=== PATIENT | female | born 1960 | race Caucasian/White ===

== ENCOUNTER 2016-05-07 08:04 | Day surgery (SDC) | payer BC ==
[~2016-05-07 08:04] MED LIST: Lactated Ringers 1,000 ML IV SCH; Midazolam 1 MG/ML 2 ML SDV ONE; Propofol 200 MG/20 ML SDV ONE; fentaNYL 100 MCG/2 ML SDV ONE
--- NOTE | 2016-05-07 08:51 | PCM.PREANE ---
Preanesthetic Assessment - Anesthesia/Transfusion/Family Hx Anesthesia History: Prior Anesthesia Without Reaction Family History of Anesthesia Reaction: No Transfusion History: No Prior Transfusion(s) - Review of Systems General: No Symptoms Pulmonary: No Symptoms Cardiovascular: No Symptoms Gastrointestinal: No symptoms Neurological: No Symptoms Other: Reports: None - Physical Assessment NPO Status Date: 05/06/16 O2 Sat by Pulse Oximetry: 96 Respiratory Rate: 16 Vital Signs: Last Vital Signs Temp 36.8 C 05/07/16 08:15 Pulse 72 05/07/16 08:15 Resp 16 05/07/16 08:15 BP 139/80 05/07/16 08:15 Pulse Ox 96 05/07/16 08:15 Height: 1.7 m Weight: 97.069 kg ASA Class: 2 Mental Status: Alert & Oriented x3 Dentition: Reports: Normal Dentition ROM/Head Extension: Full Lungs: Clear to auscultation, Normal respiratory effort Cardiovascular: Regular Rate, Regular Rhythm - Allergies Allergies/Adverse Reactions: Allergies Allergy/AdvReac Type Severity Reaction Status Date / Time No Known Allergies Allergy Verified 12/10/13 14:17 MST - Blood Product(s) Available: None - Anesthesia Plan Pre-Op Medication Ordered: None - Acknowledgements Anesthesia Type Planned: MAC Pt an Appropriate Candidate for the Planned Anesthesia: Yes Alternatives and Risks of Anesthesia Discussed w Pt/Guardian: Yes Pt/Guardian Understands and Agrees with Anesthesia Plan: Yes PreAnesthesia Questionnaire Gastrointestinal History: Reports: Colon polyp, GERD Neurological History: Reports: Migraines Psychiatric History: Reports: Anxiety Endocrine/Metabolic History: Reports: Obesity/BMI 30+ - Past Surgical History Head Surgeries/Procedures: Reports: None GI Surgical History: Reports: Colonoscopy Female Surgical History: Reports: Tubal ligation, Other (see below) Other Female Surgeries/Procedures: "kidney surgery as a child" Musculoskeletal Surgical History: Reports: Other (see below) Other Musculoskeletal Surgeries/Procedures:: hx achilles tendon repair - SUBSTANCE USE Smoking Status *Q: Current Every Day Smoker Second Hand Smoke Exposure: Yes Days Per Week of Alcohol Use: 1 Number of Drinks Per Day: 4 Total Drinks Per Week: 4 Recreational Drug Use History: No - HOME MEDS Home Medications: Home Meds Ibuprofen [Motrin] 800 mg PO TID PRN 12/10/13 [History] Multivits,Ca,Minerals/Iron/FA [One-A-Day Women's] 1 tab PO DAILY 05/04/16 [ History] - CURRENT (IN HOUSE) MEDS Current Meds: Current Medications Lactated Ringer's (Ringers, Lactated) 1,000 mls @ 125 mls/hr IV ASDIRECTED [facility] Last Admin: 05/07/16 08:16 Dose: 125 mls/hr Discontinued Medications Fentanyl (Sublimaze) Confirm Administered Dose 100 mcg .ROUTE .STK-MED ONE Stop: 05/07/16 07:26 Midazolam HCl (Versed 1 Mg/Ml) Confirm Administered Dose 2 mg .ROUTE .STK-MED ONE Stop: 05/07/16 07:26 Propofol (Diprivan 20 Ml) Confirm Administered Dose 200 mg .ROUTE .STK-MED ONE Stop: 05/07/16 07:26 Preanesthetic Assessment - ANESTHESIA/TRANSFUSION/FAMILY HX Anesthesia/Transfusion History: No Prior Transfusion(s), Prior Anesthesia Family History of Anesthesia Reaction: No - PHYSICAL ASSESSMENT O2 Sat by Pulse Oximetry: 96 RR: 16 Vital Signs: Last Vital Signs Temp 36.8 C 05/07/16 08:15 Pulse 72 05/07/16 08:15 Resp 16 05/07/16 08:15 BP 139/80 05/07/16 08:15 Pulse Ox 96 05/07/16 08:15 Height: 1.7 m Weight: 97.069 kg - ALLERGIES Allergies/Adverse Reactions: Allergies Allergy/AdvReac Type Severity Reaction Status Date / Time No Known Allergies Allergy Verified 12/10/13 14:17 MST
[2016-05-07] MEDS ORDERED: Propofol 200 MG/20 ML SDV ONE (10:03)
--- NOTE | 2016-05-07 10:34 | PCM.OPNOTE ---
- General Post-Op/Procedure Note Date of Surgery/Procedure: 05/07/16 Operative Procedure(s): Colonoscopy with biopsy distal ascending colon/proximal transverse colon mass Pre Op Diagnosis: Personal history of colon polyps Post-Op Diagnosis: Distal ascending colon/proximal transverse colon mass. Sigmoid diverticulosis. Anesthesia Technique: MAC (ASA II) Primary Surgeon: Khalif Veloz Condition: Good Free Text/Narrative:: Dictation [id number]
[2016-05-07] MEDS ORDERED: Lactated Ringers 1,000 ML IV SCH (10:45)
[2016-05-07 11:05] VITALS: BP 139/89
--- NOTE | 2016-05-07 12:14 | PCM.POSTAN ---
POST ANESTHESIA ASSESSMENT - MENTAL STATUS Mental Status: alert, oriented - RESPIRATORY Respiratory Status: respiratory rate WNL, airway patent - CARDIOVASCULAR CV Status: pulse rate WNL, blood pressure stable - GASTROINTESTINAL GI Status: no symptoms - POST OP HYDRATION Hydration Status: adequate & stable
--- NOTE | 2016-05-07 12:14 | PCM48HPAN ---
Post Anesthesia Note - EVALUATION WITHIN 48HRS OF ANESTHETIC Vital Signs in Normal Range: Yes Patient Participated in Evaluation: Yes Respiratory Function Stable: Yes Airway Patent: Yes Cardiovascular Function Stable: Yes Hydration Status Stable: Yes Pain Control Satisfactory: Yes Nausea and Vomiting Control Satisfactory: Yes Mental Status Recovered: Yes
--- NOTE | 2016-05-07 14:06 | OR ---
SURGEON: Khalif Veloz M.D. DATE OF PROCEDURE: 05/07/2016 TEST PERFORMED: Colonoscopy with biopsy of the distal ascending colon/proximal transverse colon mass. ANESTHESIA: MAC. ASA CLASSIFICATION: II. PREOPERATIVE DIAGNOSIS: Personal history of colon polyps. POSTOPERATIVE DIAGNOSIS: Distal ascending/proximal transverse colon mass. DESCRIPTION OF PROCEDURE: The patient was taken to the endoscopy room, was positioned on the endoscopy table in the left lateral decubitus position. Time-out was called for appropriate identification of the patient and procedure. Monitored anesthesia care was provided. The colonoscope was inserted into the rectum and advanced without difficulty to the cecum where the colonoscope was retroflexed to visualize the ascending colon from below. The colonoscope was then straightened and slowly withdrawn. In the area of the distal ascending colon or proximal transverse colon, there was a polypoid mass. No stalk was present, and this could not be removed endoscopically. Multiple biopsies were obtained. The area of the polypoid mass was then tattooed with carbon black. No significant bleeding was noted. The remainder of the transverse colon, splenic flexure, descending colon, sigmoid colon, and rectum showed no tumors or polyps. Diverticular changes were noted in the sigmoid colon. No stricture, spasm, or bleeding was noted. The colonoscope was then withdrawn to the rectum and retroflexed to visualize the anal orifice from above. No tumors, polyps, or acute hemorrhoidal changes were noted. The colonoscope was then straightened. The rectum aspirated, and the colon and the colonoscope removed. The patient tolerated the procedure well and was taken to recovery room in stable condition. LINDA / KIRBY /[id number]
== END 2016-05-07 11:21 | disposition home or self-care (01) ==
LOC: MW.SDS 08:04
PROVIDERS: ATTEND Surgery
PROC: 0DBK8ZZ Excision of Ascending Colon, Via Natural or Artificial Opening Endoscopic (ICD-10-PCS; principal; 2016-05-07)
DX: D12.2 Benign neoplasm of ascending colon (principal); K57.30 Diverticulosis of large intestine without perforation or abscess without bleeding; Z80.0 Family history of malignant neoplasm of digestive organs; E66.9 Obesity, unspecified; F41.9 Anxiety disorder, unspecified; K21.9 Gastro-esophageal reflux disease without esophagitis; F17.210 Nicotine dependence, cigarettes, uncomplicated
CPT/HCPCS: 45380; 88305; J2250; J3010; J7120; J2704

== ENCOUNTER 2017-07-08 08:40 | Day surgery (SDC) | payer BC ==
[~2017-07-08 08:40] MED LIST changes: -Midazolam 1 MG/ML 2 ML SDV ONE; -Propofol 200 MG/20 ML SDV ONE; -fentaNYL 100 MCG/2 ML SDV ONE
[2017-07-08] MEDS ORDERED: Lidocaine 2% 5 ML SDV ONE (09:10)
[2017-07-08] MEDS ORDERED: Midazolam 1 MG/ML 2 ML SDV ONE (09:10)
[2017-07-08] MEDS ORDERED: Propofol 200 MG/20 ML SDV ONE ×2 (09:10→10:28)
[2017-07-08] MEDS ORDERED: fentaNYL 100 MCG/2 ML SDV ONE (09:10)
--- NOTE | 2017-07-08 09:10 | PCM.PREANE ---
Preanesthetic Assessment - Anesthesia/Transfusion/Family Hx Anesthesia History: Prior Anesthesia Without Reaction Family History of Anesthesia Reaction: No Transfusion History: No Prior Transfusion(s) Intubation History: Unknown - Review of Systems General: No Symptoms Pulmonary: No Symptoms Cardiovascular: No Symptoms Gastrointestinal: No Symptoms, Other (check up one year after Rt. hemicolectomy for cancer) Neurological: No Symptoms Other: Reports: None - Physical Assessment Height: 1.7 m Weight: 94.801 kg ASA Class: 2 Mental Status: Alert & Oriented x3 Airway Class: Mallampati = 2 Dentition: Reports: Normal Dentition, [place](s) (x1 upper front) Thyro-Mental Finger Breadths: 2 Mouth Opening Finger Breadths: 3 ROM/Head Extension: Full Lungs: Clear to Auscultation, Normal Respiratory Effort Cardiovascular: Regular Rate, Regular Rhythm - Allergies Allergies/Adverse Reactions: Allergies Allergy/AdvReac Type Severity Reaction Status Date / Time No Known Allergies Allergy Verified 07/05/17 12:24 - Blood Blood Available: No - Anesthesia Plan Pre-Op Medication Ordered: None - Acknowledgements Anesthesia Type Planned: MAC Pt an Appropriate Candidate for the Planned Anesthesia: Yes Alternatives and Risks of Anesthesia Discussed w Pt/Guardian: Yes Pt/Guardian Understands and Agrees with Anesthesia Plan: Yes PreAnesthesia Questionnaire HEENT History: Reports: Allergic Rhinitis, Other (See Below) Other HEENT History: wears glasses Gastrointestinal History: Reports: Colon Polyp, GERD Neurological History: Reports: Concussion, Other (See Below) Other Neuro History: hx of motion sickness Psychiatric History: Reports: Anxiety Endocrine/Metabolic History: Reports: Obesity/BMI 30+ Oncologic (Cancer) History: Reports: Colon - Past Surgical History GI Surgical History: Reports: Colon (right hemicolectomy 06/23), Colonoscopy Other GI Surgeries/Procedures: hx of colon cancer with Lap -Assisted Right Hemicolectomy 1 year ago Female Surgical History: Reports: Tubal Ligation, Other (See Below) Other Female Surgeries/Procedures: surgery to remove "extra ureter" as a child Musculoskeletal Surgical History: Reports: Other (See Below) Other Musculoskeletal Surgeries/Procedures:: repair of right Achilles Tendon - SUBSTANCE USE Smoking Status *Q: Current Every Day Smoker (< 1ppd) Tobacco Use Within Last Twelve Months: Cigarettes Recreational Drug Use History: No - HOME MEDS Home Medications: Home Meds Ibuprofen [Motrin] 800 mg PO TID PRN 12/10/13 [History] Multivits,Ca,Minerals/Iron/FA [One-A-Day Women's] 1 tab PO DAILY 05/04/16 [ History] Diclofenac Sodium [Diclofenac Sodium ER] 100 mg PO DAILY 07/05/17 [History] Montelukast [Singulair] 10 mg PO DAILY 07/05/17 [History] - CURRENT (IN HOUSE) MEDS Current Meds: Current Medications Lactated Ringer's (Ringers, Lactated) 1,000 mls @ 125 mls/hr IV ASDIRECTED [facility]
--- NOTE | 2017-07-08 10:53 | PCM.OPNOTE ---
- General Post-Op/Procedure Note Date of Surgery/Procedure: 07/08/17 Operative Procedure(s): Colonoscopy to the anastomosis Pre Op Diagnosis: Personal history of colon cancer and colon polyps. Post-Op Diagnosis: No evidence of neoplasia. Minimal sigmoid diverticulosis. Anesthesia Technique: MAC (ASA II) Primary Surgeon: Khalif Veloz Condition: Good Free Text/Narrative:: DICTATION [id number] CPT CODE [id number]
[2017-07-08] MEDS ORDERED: Lactated Ringers 1,000 ML IV SCH (11:00)
[2017-07-08 11:39] VITALS: BP 108/59
--- NOTE | 2017-07-08 12:55 | OR ---
SURGEON: Khalif Veloz M.D. DATE OF PROCEDURE: 07/08/2017 OPERATION PERFORMED: Colonoscopy. ANESTHESIA: MAC. ASA CLASSIFICATION: II. PREOPERATIVE DIAGNOSIS: Personal history of right colon cancer and colon polyps. POSTOPERATIVE DIAGNOSES: 1. No evidence of neoplasia. 2. Mild sigmoid diverticulosis. DESCRIPTION OF PROCEDURE: The patient was taken to the endoscopy room and positioned on the endoscopy table in the left lateral decubitus position. Time-out was called for appropriate identification of patient and procedure. Monitored anesthesia care was provided. The colonoscope was inserted into the rectum and advanced without difficulty to the anastomosis. I was able to visualize the anastomosis and just cannulated the most distal portion. The anastomosis is patent. I did not see any evidence of recurrent disease. The remainder of the transverse colon, splenic flexure, descending colon, sigmoid colon, and rectum were well visualized. No tumors or polyps were encountered. A few small diverticula were noted in the sigmoid colon. The colonoscope was withdrawn to the rectum and retroflexed to visualize the anal orifice from above. No tumors or polyps were seen, and there were no acute hemorrhoidal changes. The colonoscope was then removed with the patient having tolerated the procedure well. She was taken to recovery room in stable condition. LINDA / KIRBY /[id number]
== END 2017-07-08 12:00 | disposition home or self-care (01) ==
LOC: MW.SDS 08:40
PROVIDERS: ATTEND Surgery
DX: K57.30 Diverticulosis of large intestine without perforation or abscess without bleeding (principal); J30.9 Allergic rhinitis, unspecified; K21.9 Gastro-esophageal reflux disease without esophagitis; F41.9 Anxiety disorder, unspecified; F17.210 Nicotine dependence, cigarettes, uncomplicated; Z79.899 Other long term (current) drug therapy; Z90.49 Acquired absence of other specified parts of digestive tract; Z86.010 Personal history of colon polyps; Z85.038 Personal history of other malignant neoplasm of large intestine; Z80.0 Family history of malignant neoplasm of digestive organs
CPT/HCPCS: 45378; J2250; J3010; J7120; J2704